=== PATIENT | male | born 1995 | race Caucasian/White ===

== ENCOUNTER 2018-06-21 12:15 | Emergency (ER) | payer OTHER ==
[2016-08-16 09:11] VITALS: Wt 81.6 kg
[~2018-06-21 12:15] MED LIST: DOCU-416 PO; HYDR-653 PO; IBUP600T22 PO; PANT40TA65 PO; PER PO
--- NOTE | 2018-06-21 12:24 | ER Report ---
History and Physical Time Seen By MD: 12:24 Hx. of Stated Complaint: patient reports foreign body in his right eye. he believes it to be woodchips HPI/ROS CHIEF COMPLAINT: Right eye irritation HISTORY OF PRESENT ILLNESS: 23-year-old male patient presents to emergency room with complaint of right eye irritation. Patient states that he believes that he got a foreign body in the right eye. Patient states that he has not had any visu al changes. He states that he was using a skill saw at work cutting a piece wood when he felt some of that dust kicked Into his eye. Patient states that he did try to flush his eye. Patient states he does have some significant irritation. He has had metal removed from this eye in the past. Patient states that he does not have any headache, dizziness, nausea or vomiting. Allergies: Coded Allergies: No Known Drug Allergies (Unverified , 02/02/17) Home Meds Active Scripts Tobramycin (TOBREX) 5 Ml Drops, 5 ML OP Q4H, #1 BOT Prov:[facility] 06/21/18 Past Medical/Surgical History Patient has a past medical history of concussion, asthma, fracture. Patient denies any surgical history. Reviewed Nurses Notes: Yes Hx Smoking: Yes (vaporizor ) Smoking Status: Current: Every Day Smoker Hx Substance Use Disorder: No Hx Alcohol Use: No Constitutional Vital Sign - Last 24 Hours 06/21/18 06/21/18 06/21/18 06/21/18 12:15 12:19 12:20 12:30 Temp 97.6 Pulse 52 57 Resp 20 B/P (MAP) 118/81 (93) 118/81 109/73 (85) Pulse Ox 95 O2 Delivery Room Air 06/21/18 06/21/18 06/21/18 06/21/18 12:35 12:55 13:00 13:15 Pulse 51 56 60 B/P (MAP) 122/83 (96) Pulse Ox 95 94 95 06/21/18 06/21/18 06/21/18 06/21/18 13:30 13:35 13:55 14:00 Pulse 59 57 B/P (MAP) 120/83 (95) 124/82 (96) Pulse Ox 94 94 Physical Exam General Appearance: The patient is alert, has no immediate need for airway protection and no current signs of toxicity. Eyes: Pupils equal and round with injection in the right eye. Respiratory: Chest is non tender, lungs are clear to auscultation. Cardiac: regular rate and rhythm DIFFERENTIAL DIAGNOSIS: After history and physical exam differential diagnosis was considered for retained foreign body, corneal abrasion, irritation. Medical Decision Making ED Course/Re-evaluation ED Course Patient was admitted to an exam room, history and physical were obtained. Differential diagnoses were considered. On examination lungs are clear, heart is regular. Patient does have redness to the right eye. A fluorescein exam was done, I was unable to visualize any retained foreign bodies or any abrasions. After that we did go ahead and flush the eye with a liter of normal saline. After the eye was flushed I reevaluated and was unable to visualize any retained foreign bodies. At this time we will discharge patient home. Patient will be prescribed Tobrex for infection. Patient should return to the emergency room if condition worsens. Patient should follow-up with his eye doctor if he has persistent irritation of the eye. I decided that we will have improvement within the next 24-48 hours. Patient verbalized understanding and agreement with plan. Decision to Disposition Date: June 21, 2018 Decision to Disposition Time: 13:52 Depart Departure Latest Vital Signs Vital Signs Date Time Temp Pulse Resp B/P (MAP) Pulse Ox O2 Delivery O2 Flow Rate FiO2 06/21/18 14:00 124/82 (96) 06/21/18 13:55 57 94 06/21/18 12:20 97.6 20 Room Air Impression: Primary Impression: Corneal FB (foreign body) Condition: Improved Disposition: HOME OR SELF-CARE Referrals: YOU BARAKAT (PCP) New Scripts Tobramycin (TOBREX) 5 Ml Drops 5 ML OP Q4H, #1 BOT Prov: EDGAR FITCH 06/21/18 Patient Instructions: Eye Foreign Body (ED) Additional Instructions: Take the antibiotics as directed. Follow up with your eye doctor if eye irritation persists. Return to the ER if condition worsens. Limit activity by pain. Problem Qualifiers Primary Impression: Corneal FB (foreign body) Encounter type: initial encounter Laterality: right Qualified Codes: T15.01XA - Foreign body in cornea, right eye, initial encounter EDGAR FITCH June 21, 2018 12:24
[2018-06-21] MEDS ORDERED: FLUORESCEIN SOD 1 MG 1 EA STRP OS ONE (12:25)
[2018-06-21] MEDS ORDERED: PROPARACAINE 0.5% OP 15ML BTL OS ONE (12:25)
[2018-06-21] MEDS ORDERED: PROPARACAI/FLUORESCEIN 5 ML OP DROPS OU ONE (12:30)
[2018-06-21] MEDS ORDERED: FLUORESCEIN SOD 1 MG 1 EA STRP ONE (12:38)
[2018-06-21] MEDS ORDERED: NS(*) 0.9% 1000 ML BAG 1,000 ML IR ONE (12:45)
[2018-06-21] MEDS ORDERED: TOBR5DRO43 OP (13:56)
[2018-06-21 14:00] VITALS: BP 124/82
== END 2018-06-21 14:04 | disposition home or self-care (01) ==
LOC: ER 12:19
DX: T15.01XA Foreign body in cornea, right eye, initial encounter (principal)
CPT/HCPCS: 99283